=== PATIENT | male | born 1950 | race African-American/Black ===

== ENCOUNTER 2021-09-24 09:20 | Emergency (ER) | payer MEDICARE ==
[~2021-09-24] VITALS: Ht 176.5 cm; Wt 95.5 kg
[2021-09-24] MEDS ORDERED: PRO1 PO (09:31)
[2021-09-24] MEDS ORDERED: LISI10TA26 PO (09:31)
[2021-09-24] MEDS ORDERED: ACYCLOVIR 400 MG TABLET PO ONE (10:30)
[2021-09-24] MEDS ORDERED: NIFEDIPINE XL 30MG TAB PO ONE (10:30)
[2021-09-24] MEDS ORDERED: PREDNISONE 20MG TABLET PO ONE (10:30)
[2021-09-24 10:44] LABS: BASOPHILS % 0.7 % (0.0-2.0); EOSINOPHILS % 1.4 % (0.0-5.0); HEMATOCRIT. 44.6 % (42.0-52.0); HEMOGLOBIN. 14.6 g/dL (14.0-18.0); LYMPHOCYTES % 18.1 % (20.0-50.0); MEAN CORPUSCULAR HEMOGLOBIN 27.1 pg (28.0-32.0); MEAN CORPUSCULAR VOLUME 83.1 fL (80.0-94.0); MEAN PLATELET VOLUME 9.3 fl (7.4-10.4); MONOCYTES % 7.7 % (2.0-8.0); NEUTROPHILS % 72.1 % (40.0-76.0); PLATELET 281 x1000/uL (130-400); RED BLOOD CELL COUNT 5.37 mill/uL (4.7-6.1); RED CELL DISTRIBUTION WIDTH 14.3 % (11.6-14.6)
[2021-09-24 10:49] LABS: CHLORIDE 106 mEq/L (98-107)
[2021-09-24] MEDS ORDERED: NIFE-33 MT (13:08)
[2021-09-24] MEDS ORDERED: ACYC200C31 MT (13:08)
[2021-09-24] MEDS ORDERED: POLY15DR31 EACHEYE (13:08)
[2021-09-24] MEDS ORDERED: P50 MT (13:08)
[2021-09-24] MEDS ORDERED: CLOP-31 MT (13:09)
[2021-09-24] MEDS ORDERED: AMLODIPINE 5MG TABLET PO ONE (13:30)
[2021-09-24 13:32] VITALS: BP 213/117
[2021-09-24] MEDS ORDERED: CLONIDINE 0.1MG TABLET PO ONE (14:30)
== END 2021-09-24 14:33 | disposition left against medical advice (07) ==
LOC: ER 09:20
DX: G51.0 Bell's palsy (principal); I16.0 Hypertensive urgency; R94.31 Abnormal electrocardiogram [ECG] [EKG]; I10 Essential (primary) hypertension; E11.9 Type 2 diabetes mellitus without complications; E78.00 Pure hypercholesterolemia, unspecified
CPT/HCPCS: 36415; 70450; 80053; 82962; 85025; 93005; 99285; J7512

== ENCOUNTER 2022-08-23 13:40 | Inpatient (IN) | payer MEDICARE ==
[~2022-08-23] VITALS: Ht 175.3 cm; Wt 90.3 kg
[~2022-08-23 13:40] MED LIST: ACYC200C31 MT; CLOP-31 MT; LISI10TA26 PO; NIFE-33 MT; P50 MT; POLY15DR31 EACHEYE; PRO1 PO
[2022-08-23] MEDS ORDERED: VISCOUS LIDOCAINE 2% 15 ML UDC PO STA (16:32)
[2022-08-23] MEDS ORDERED: ONDANSETRON HCL 4MG/2ML INJ IV STA (16:32)
[2022-08-23] MEDS ORDERED: DICYCLOMINE 10 MG/5 ML ORAL SYR PO STA (16:32)
[2022-08-23] MEDS ORDERED: MAGNESIUM/ALUMINUM HYDROXIDE/SIMETHICONE 30ML UDC PO STA (16:32)
[2022-08-23 17:28] LABS: HEMATOCRIT. 52.2 % (42.0-52.0); HEMOGLOBIN. 17.1 g/dL (14.0-18.0); MEAN CORPUSCULAR HEMOGLOBIN 27.5 pg (28.0-32.0); MEAN CORPUSCULAR VOLUME 84.1 fL (80.0-94.0); MEAN PLATELET VOLUME 10.1 fl (7.4-10.4); PLATELET 324 x1000/uL (130-400); RED BLOOD CELL COUNT 6.21 mill/uL (4.7-6.1); RED CELL DISTRIBUTION WIDTH 14.1 % (11.6-14.6)
[2022-08-23 17:33] LABS: CHLORIDE 102 mEq/L (98-107); PROTHROMBIN TIME 10.9 sec (9.6-11.0)
[2022-08-23] MEDS ORDERED: HYDRALAZINE 20MG/ML VIAL IV ONE (18:00)
[2022-08-23 18:17] LABS: PLATELET ESTIMATE NORMAL
[2022-08-23] MEDS ORDERED: DICYCLOMINE 10 MG/5 ML ORAL SYR PO NR (20:15)
[2022-08-23] MEDS ORDERED: VISCOUS LIDOCAINE 2% 15 ML UDC PO NR (20:15)
[2022-08-23] MEDS ORDERED: ONDANSETRON HCL 4MG/2ML INJ IV NR (20:15)
[2022-08-23] MEDS ORDERED: MAGNESIUM/ALUMINUM HYDROXIDE/SIMETHICONE 30ML UDC PO NR (20:15)
[2022-08-23] MEDS ORDERED: HYDRALAZINE 20MG/ML VIAL IV NR (20:15)
[2022-08-23] MEDS ORDERED: LISINOPRIL 10MG TABLET PO ONE (21:30)
[2022-08-23] MEDS ORDERED: NIFEDIPINE XL 60MG TAB PO ONE (21:30)
[2022-08-23] MEDS ORDERED: NICARDIPINE 40MG/200ML PREMIX 200 ML IV PRN (21:30)
[2022-08-23 22:14] LABS: CLARITY URINE CLEAR (CLEAR); COLOR URINE YELLOW (YELLOW); KETONES URINE 2+ (NEGATIVE); LEUKOCYTE ESTERASE URINE NEGATIVE (NEGATIVE); NITRITE URINE NEGATIVE (NEGATIVE); OCCULT BLOOD URINE 1+ (NEGATIVE); PH URINE 5.5 (4.5-8.0); PROTEIN URINE 4+ (NEGATIVE); SPECIFIC GRAVITY URINE 1.063 (1.005-1.030); UROBILINOGEN URINE 0.2 E.U./dL (0.2-1.0)
[2022-08-23] MEDS ORDERED: ASPIRIN 325MG TABLET PO ONE (23:00)
[2022-08-23] MEDS ORDERED: IOHEXOL-350 100 ML BOTTLE ONE (23:42)
[2022-08-24] MEDS ORDERED: DILTIAZEM HCL 5MG/ML 5ML VIAL IV ONE (00:45)
[2022-08-24] MEDS ORDERED: DILTIAZEM HCL 5MG/ML 5ML VIAL IV NR (01:45)
[2022-08-24] MEDS ORDERED: NICARDIPINE 40MG/200ML PREMIX 200 ML IV PRN (04:15)
[2022-08-24] MEDS ORDERED: CLONIDINE 0.2MG TABLET PO PRN (09:00)
[2022-08-24] MEDS: LOSARTAN POTASSIUM 50 MG TABLET PO SCH (09:51)
[2022-08-24] MEDS: NIFEDIPINE XL 60MG TAB PO SCH (09:51)
[2022-08-24] MEDS ORDERED: INSULIN LISPRO 100 UNITS/ML SUBCUT SCH (12:45)
[2022-08-24 14:00] VITALS: BP 120/65
[2022-08-24] MEDS ORDERED: ACETAMINOPHEN 325MG TABLET PO PRN (14:30)
[2022-08-24] MEDS ORDERED: INSULIN GLARGINE 100 UNITS/ML SUBCUT NR (14:45)
[2022-08-24] MEDS ORDERED: DEXTROSE 50% WATER 50ML SYRINGE IV PRN (14:45)
[2022-08-24] MEDS ORDERED: INSULIN LISPRO 100 UNITS/ML SUBCUT NR (14:45)
[2022-08-24 15:04] VITALS: BP 122/68
[2022-08-24] MEDS ORDERED: LEVOFLOXACIN 500MG PREMIX 100 ML IV SCH ×2 (16:00→18:30)
[2022-08-24] MEDS ORDERED: INFLUENZA VACCINE 05/PF 0.5 ML SYRINGE IM ONE (16:30)
[2022-08-24] MEDS: BLOOD SUGAR DIAGNOSTIC STRIP TEST SCH ×2 (17:20→21:09)
[2022-08-24 18:00] VITALS: BP 130/53
[2022-08-24] MEDS: ENOXAPARIN 30MG/0.3ML SYR SUBCUT SCH (18:10)
[2022-08-24] MEDS: INSULIN LISPRO 100 UNITS/ML SUBCUT SCH ×2 (18:11→21:00)
[2022-08-24 19:37] LABS: HEMATOCRIT. 47.3 % (42.0-52.0); HEMOGLOBIN. 15.7 g/dL (14.0-18.0); MEAN CORPUSCULAR HEMOGLOBIN 27.5 pg (28.0-32.0); MEAN PLATELET VOLUME 9.7 fl (7.4-10.4); PLATELET 283 x1000/uL (130-400); RED BLOOD CELL COUNT 5.69 mill/uL (4.7-6.1); RED CELL DISTRIBUTION WIDTH 14.5 % (11.6-14.6)
[2022-08-24 19:48] LABS: CHLORIDE 103 mEq/L (98-107)
[2022-08-24 20:00] VITALS: BP 122/73
[2022-08-24 20:46] LABS: PLATELET ESTIMATE NORMAL
[2022-08-24 22:00] VITALS: BP 135/69
[2022-08-25] VITALS (18 sets, daily range): BP systolic 133–168; BP diastolic 67–97
[2022-08-25 01:33] LABS: CREATINE KINASE MB FRACTION 5.9 ng/mL (0.5-3.6)
[2022-08-25] MEDS: ENOXAPARIN 30MG/0.3ML SYR SUBCUT SCH (05:13)
[2022-08-25] MEDS: CLONIDINE 0.1MG TABLET PO PRN (06:29)
[2022-08-25] MEDS: ONDANSETRON HCL 4MG/2ML INJ IV PRN ×5 (06:37→23:05)
[2022-08-25] MEDS: BLOOD SUGAR DIAGNOSTIC STRIP TEST SCH ×4 (07:44→21:55)
[2022-08-25] MEDS: NIFEDIPINE XL 60MG TAB PO SCH (08:06)
[2022-08-25] MEDS: LOSARTAN POTASSIUM 50 MG TABLET PO SCH (08:07)
[2022-08-25] MEDS: INSULIN LISPRO 100 UNITS/ML SUBCUT SCH ×4 (08:10→22:00)
[2022-08-25] MEDS ORDERED: MORPHINE SULFATE 2 MG/ML CPJ (NOT FOR IM USE) IV NR (08:30)
[2022-08-25] MEDS ORDERED: POTASSIUM CHLORIDE INJ 30 MEQ in DEXT 5% WATER 250 ML IV NR (10:00)
[2022-08-25 16:19] LABS: CREATINE KINASE MB FRACTION 4.1 ng/mL (0.5-3.6)
[2022-08-25] MEDS ORDERED: NALOXONE HCL 0.4MG/ML VIAL IV PRN (16:45)
[2022-08-25] MEDS: MORPHINE SULFATE 2 MG/ML CPJ (NOT FOR IM USE) IV PRN ×2 (16:48→23:06)
[2022-08-25] MEDS ORDERED: LEVOFLOXACIN 250MG PREMIX 50 ML IV SCH (18:00)
[2022-08-25] MEDS: FUROSEMIDE 40MG/4ML VIAL IVP SCH (18:57)
[2022-08-25] MEDS ORDERED: VANCOMYCIN 1,750 MG in DEXT 5% WATER 250 ML IV NR (20:30)
[2022-08-25] MEDS: PIPERACILLIN/TAZOBACTAM 3.375 G in DEXTROSE 5% WATER 50 ML IV SCH (21:56)
[2022-08-26] VITALS (16 sets, daily range): BP systolic 114–200; BP diastolic 77–112
[2022-08-26] MEDS: CLONIDINE 0.1MG TABLET PO PRN (02:45)
[2022-08-26] MEDS: PIPERACILLIN/TAZOBACTAM 3.375 G in DEXTROSE 5% WATER 50 ML IV SCH ×3 (05:23→21:45)
[2022-08-26] MEDS: BLOOD SUGAR DIAGNOSTIC STRIP TEST SCH ×4 (07:30→21:45)
[2022-08-26] MEDS: INSULIN LISPRO 100 UNITS/ML SUBCUT SCH ×4 (09:27→21:56)
[2022-08-26] MEDS: ENOXAPARIN 40MG/0.4ML SYR SUBCUT SCH (09:29)
[2022-08-26] MEDS: FUROSEMIDE 40MG/4ML VIAL IVP SCH (09:29)
[2022-08-26] MEDS: LOSARTAN POTASSIUM 50 MG TABLET PO SCH (09:30)
[2022-08-26] MEDS: ASPIRIN 81MG EC TABLET PO SCH (09:35)
[2022-08-26] MEDS: NIFEDIPINE XL 90MG TAB PO SCH ×2 (09:35→16:57)
[2022-08-26] MEDS: CLOPIDOGREL 75MG TABLET PO SCH (09:36)
[2022-08-26] MEDS ORDERED: LEVOFLOXACIN 500MG PREMIX 100 ML IV SCH (11:00)
[2022-08-26 12:46] LABS: HEMOGLOBIN. 16.4 g/dL (14.0-18.0); MEAN CORPUSCULAR HEMOGLOBIN 27.4 pg (28.0-32.0); MEAN CORPUSCULAR VOLUME 83.6 fL (80.0-94.0); MEAN PLATELET VOLUME 9.8 fl (7.4-10.4); PLATELET 291 x1000/uL (130-400); RED BLOOD CELL COUNT 5.99 mill/uL (4.7-6.1)
[2022-08-26 13:00] LABS: CHLORIDE 96 mEq/L (98-107)
[2022-08-26 14:03] LABS: PLATELET ESTIMATE NORMAL
[2022-08-26] MEDS ORDERED: POTASSIUM CHLORIDE 20MEQ TABLET SR PO NR (18:45)
[2022-08-26] MEDS: ONDANSETRON HCL 4MG/2ML INJ IV PRN (18:53)
[2022-08-26] MEDS ORDERED: INSULIN GLARGINE 100 UNITS/ML SUBCUT SCH (22:00)
[2022-08-27] VITALS (14 sets, daily range): BP systolic 127–175; BP diastolic 76–99
[2022-08-27] MEDS: VANCOMYCIN 1G PREMIX 200 ML IV SCH ×2 (00:19→17:40)
[2022-08-27] MEDS: PIPERACILLIN/TAZOBACTAM 3.375 G in DEXTROSE 5% WATER 50 ML IV SCH ×3 (05:24→21:56)
[2022-08-27] MEDS: BLOOD SUGAR DIAGNOSTIC STRIP TEST SCH ×4 (07:26→21:00)
[2022-08-27 07:52] LABS: BASOPHILS % 0.1 % (0.0-2.0); EOSINOPHILS % 0.1 % (0.0-5.0); HEMATOCRIT. 53.8 % (42.0-52.0); HEMOGLOBIN. 18.1 g/dL (14.0-18.0); LYMPHOCYTES % 8.3 % (20.0-50.0); MEAN CORPUSCULAR HEMOGLOBIN 28.1 pg (28.0-32.0); MEAN CORPUSCULAR VOLUME 83.8 fL (80.0-94.0); MEAN PLATELET VOLUME 9.7 fl (7.4-10.4); MONOCYTES % 11.7 % (2.0-8.0); NEUTROPHILS % 79.8 % (40.0-76.0); PLATELET 279 x1000/uL (130-400); RED BLOOD CELL COUNT 6.43 mill/uL (4.7-6.1); RED CELL DISTRIBUTION WIDTH 14.1 % (11.6-14.6)
[2022-08-27] MEDS: INSULIN LISPRO 100 UNITS/ML SUBCUT SCH ×4 (08:00→21:56)
[2022-08-27] MEDS ORDERED: REGADENOSON 0.4 MG/5 ML IV ONE (09:00)
[2022-08-27] MEDS: ONDANSETRON HCL 4MG/2ML INJ IV PRN (09:59)
[2022-08-27] MEDS: ASPIRIN 81MG EC TABLET PO SCH (09:59)
[2022-08-27] MEDS: CLOPIDOGREL 75MG TABLET PO SCH (09:59)
[2022-08-27] MEDS: LOSARTAN POTASSIUM 50 MG TABLET PO SCH (09:59)
[2022-08-27] MEDS: ENOXAPARIN 40MG/0.4ML SYR SUBCUT SCH (09:59)
[2022-08-27] MEDS: NIFEDIPINE XL 90MG TAB PO SCH ×2 (10:02→17:55)
[2022-08-27] MEDS: FUROSEMIDE 40MG/4ML VIAL IVP SCH (10:04)
[2022-08-27] MEDS: LEVOFLOXACIN 500MG PREMIX 100 ML IV SCH (10:05)
[2022-08-27] MEDS ORDERED: VANCOMYCIN 1250MG in DEXTROSE 5% WATER 250ML IV SCH (12:00)
[2022-08-27] MEDS: INSULIN GLARGINE 100 UNITS/ML SUBCUT SCH (21:56)
[2022-08-28] VITALS (8 sets, daily range): BP systolic 127–178; BP diastolic 71–90
[2022-08-28] MEDS: PIPERACILLIN/TAZOBACTAM 3.375 G in DEXTROSE 5% WATER 50 ML IV SCH ×3 (05:34→22:00)
[2022-08-28 07:17] LABS: BASOPHILS % 0.2 % (0.0-2.0); EOSINOPHILS % 0.6 % (0.0-5.0); HEMATOCRIT. 50.8 % (42.0-52.0); HEMOGLOBIN. 16.7 g/dL (14.0-18.0); LYMPHOCYTES % 15.1 % (20.0-50.0); MEAN CORPUSCULAR HEMOGLOBIN 27.7 pg (28.0-32.0); MEAN CORPUSCULAR VOLUME 84.5 fL (80.0-94.0); MEAN PLATELET VOLUME 9.7 fl (7.4-10.4); MONOCYTES % 11.9 % (2.0-8.0); NEUTROPHILS % 72.2 % (40.0-76.0); PLATELET 275 x1000/uL (130-400); RED BLOOD CELL COUNT 6.01 mill/uL (4.7-6.1); RED CELL DISTRIBUTION WIDTH 13.6 % (11.6-14.6)
[2022-08-28] MEDS: INSULIN LISPRO 100 UNITS/ML SUBCUT SCH ×4 (07:43→21:34)
[2022-08-28] MEDS: BLOOD SUGAR DIAGNOSTIC STRIP TEST SCH ×4 (07:43→21:35)
[2022-08-28] MEDS: ASPIRIN 81MG EC TABLET PO SCH (08:24)
[2022-08-28] MEDS: CLOPIDOGREL 75MG TABLET PO SCH (08:25)
[2022-08-28] MEDS: NIFEDIPINE XL 90MG TAB PO SCH ×2 (08:25→17:19)
[2022-08-28] MEDS: LOSARTAN POTASSIUM 50 MG TABLET PO SCH (08:25)
[2022-08-28] MEDS: ENOXAPARIN 40MG/0.4ML SYR SUBCUT SCH (08:28)
[2022-08-28] MEDS: FUROSEMIDE 40MG/4ML VIAL IVP SCH (08:29)
[2022-08-28] MEDS: ONDANSETRON HCL 4MG/2ML INJ IV PRN (09:20)
[2022-08-28] MEDS ORDERED: REGADENOSON 0.4 MG/5 ML IV ONE (09:30)
[2022-08-28] MEDS ORDERED: LORAZEPAM 0.5MG TABLET PO NR (10:45)
[2022-08-28] MEDS ORDERED: LORAZEPAM 2MG/ML CPJ IV NR (10:45)
[2022-08-28] MEDS ORDERED: POTASSIUM CHLORIDE 20MEQ TABLET SR PO NR (10:45)
[2022-08-28] MEDS: LEVOFLOXACIN 500MG PREMIX 100 ML IV SCH (14:31)
[2022-08-28] MEDS: VANCOMYCIN 1G PREMIX 200 ML IV SCH (18:38)
[2022-08-28] MEDS: INSULIN GLARGINE 100 UNITS/ML SUBCUT SCH (21:35)
[2022-08-29] VITALS (13 sets, daily range): BP systolic 118–166; BP diastolic 54–90
[2022-08-29] MEDS: VANCOMYCIN 1G PREMIX 200 ML IV SCH ×2 (00:30→12:57)
[2022-08-29] MEDS: PIPERACILLIN/TAZOBACTAM 3.375 G in DEXTROSE 5% WATER 50 ML IV SCH ×3 (06:00→21:56)
[2022-08-29] MEDS: FUROSEMIDE 40MG/4ML VIAL IVP SCH (08:06)
[2022-08-29] MEDS: LOSARTAN POTASSIUM 50 MG TABLET PO SCH (08:06)
[2022-08-29] MEDS: NIFEDIPINE XL 90MG TAB PO SCH ×2 (08:07→17:08)
[2022-08-29] MEDS: ENOXAPARIN 40MG/0.4ML SYR SUBCUT SCH (08:07)
[2022-08-29] MEDS: ASPIRIN 81MG EC TABLET PO SCH (08:07)
[2022-08-29] MEDS: CLOPIDOGREL 75MG TABLET PO SCH (08:07)
[2022-08-29] MEDS: BLOOD SUGAR DIAGNOSTIC STRIP TEST SCH ×4 (08:13→17:16)
[2022-08-29] MEDS: INSULIN LISPRO 100 UNITS/ML SUBCUT SCH ×4 (08:20→20:56)
[2022-08-29 13:05] LABS: BASOPHILS % 0.1 % (0.0-2.0); EOSINOPHILS % 0.8 % (0.0-5.0); HEMATOCRIT. 47.7 % (42.0-52.0); HEMOGLOBIN. 15.6 g/dL (14.0-18.0); LYMPHOCYTES % 11.4 % (20.0-50.0); MEAN CORPUSCULAR HEMOGLOBIN 27.6 pg (28.0-32.0); MEAN CORPUSCULAR VOLUME 84.2 fL (80.0-94.0); MEAN PLATELET VOLUME 9.3 fl (7.4-10.4); MONOCYTES % 10.4 % (2.0-8.0); NEUTROPHILS % 77.3 % (40.0-76.0); PLATELET 256 x1000/uL (130-400); RED BLOOD CELL COUNT 5.67 mill/uL (4.7-6.1); RED CELL DISTRIBUTION WIDTH 13.7 % (11.6-14.6)
[2022-08-29 13:14] LABS: CHLORIDE 97 mEq/L (98-107)
[2022-08-29] MEDS: INSULIN GLARGINE 100 UNITS/ML SUBCUT SCH (21:59)
[2022-08-30] VITALS (10 sets, daily range): BP systolic 113–157; BP diastolic 34–93
[2022-08-30] MEDS: VANCOMYCIN 1G PREMIX 200 ML IV SCH
[2022-08-30] MEDS: PIPERACILLIN/TAZOBACTAM 3.375 G in DEXTROSE 5% WATER 50 ML IV SCH ×2 (06:18→13:05)
[2022-08-30] MEDS: BLOOD SUGAR DIAGNOSTIC STRIP TEST SCH ×3 (07:30→17:14)
[2022-08-30] MEDS: INSULIN LISPRO 100 UNITS/ML SUBCUT SCH ×3 (08:00→17:14)
[2022-08-30 08:11] LABS: BASOPHILS % 0.2 % (0.0-2.0); EOSINOPHILS % 1.6 % (0.0-5.0); HEMATOCRIT. 46.9 % (42.0-52.0); HEMOGLOBIN. 15.4 g/dL (14.0-18.0); LYMPHOCYTES % 13.6 % (20.0-50.0); MEAN CORPUSCULAR HEMOGLOBIN 27.6 pg (28.0-32.0); MEAN CORPUSCULAR VOLUME 84.2 fL (80.0-94.0); MEAN PLATELET VOLUME 9.9 fl (7.4-10.4); MONOCYTES % 9.8 % (2.0-8.0); NEUTROPHILS % 74.8 % (40.0-76.0); PLATELET 276 x1000/uL (130-400); RED BLOOD CELL COUNT 5.57 mill/uL (4.7-6.1); RED CELL DISTRIBUTION WIDTH 13.8 % (11.6-14.6)
[2022-08-30 08:18] LABS: CHLORIDE 99 mEq/L (98-107)
[2022-08-30] MEDS: CLOPIDOGREL 75MG TABLET PO SCH (08:55)
[2022-08-30] MEDS: NIFEDIPINE XL 90MG TAB PO SCH ×2 (08:55→17:23)
[2022-08-30] MEDS: ENOXAPARIN 40MG/0.4ML SYR SUBCUT SCH (08:55)
[2022-08-30] MEDS: LOSARTAN POTASSIUM 50 MG TABLET PO SCH (08:56)
[2022-08-30] MEDS: FUROSEMIDE 40MG/4ML VIAL IVP SCH (08:56)
[2022-08-30] MEDS: ASPIRIN 81MG EC TABLET PO SCH (08:56)
[2022-08-30] MEDS ORDERED: POTASSIUM CHLORIDE 20MEQ TABLET SR PO NR (09:15)
[2022-08-30] MEDS ORDERED: FURO-151 MT (12:14)
[2022-08-30] MEDS ORDERED: LOSA50TA3 PO (12:14)
[2022-08-30] MEDS ORDERED: NIFE90TA60 MT (12:14)
[2022-08-30] MEDS ORDERED: LANTUSUD SUBCUT (12:14)
[2022-08-30] MEDS ORDERED: HYDR100T26 MT (12:15)
== END 2022-08-30 18:55 | disposition home or self-care (01) | DRG 871 ==
LOC: ER 13:40 → MICUSO 21:18 → 5EST 08-24 18:24
PROVIDERS: ADMIT Internal Medicine; ATTEND Internal Medicine
DX: A41.9 Sepsis, unspecified organism (principal); I21.4 Non-ST elevation (NSTEMI) myocardial infarction; J18.9 Pneumonia, unspecified organism; J81.1 Chronic pulmonary edema; E87.1 Hypo-osmolality and hyponatremia; N17.9 Acute kidney failure, unspecified; I31.39 Other pericardial effusion (noninflammatory); E11.43 Type 2 diabetes mellitus with diabetic autonomic (poly)neuropathy; Z20.822 Contact with and (suspected) exposure to COVID-19; I16.0 Hypertensive urgency; E11.65 Type 2 diabetes mellitus with hyperglycemia; I10 Essential (primary) hypertension; E78.5 Hyperlipidemia, unspecified; E87.6 Hypokalemia; K31.84 Gastroparesis; E78.00 Pure hypercholesterolemia, unspecified; G51.0 Bell's palsy; E27.8 Other specified disorders of adrenal gland; I49.3 Ventricular premature depolarization; K83.8 Other specified diseases of biliary tract; Z79.02 Long term (current) use of antithrombotics/antiplatelets; Z91.199 Patient's noncompliance with other medical treatment and regimen due to unspecified reason; Z79.82 Long term (current) use of aspirin; Z79.899 Other long term (current) drug therapy; Z87.891 Personal history of nicotine dependence
CPT/HCPCS: 36415; 71045; 71275; 74174; 74181; 76705; 78452; 80048; 80053; 80076; 80202; 81003; 82550; 82553; 82962; 83036; 83880; 84145; 84484; 85025; 87426; 87804; 90686; 93005; 93017; 93306; 97162; 97166; 99291; A9500; C9803; J0360; J1650; J1815; J1940; J1956; J2060; J2270; J2405; J2543; J2785; J3370; J3480; J3490; J7060; Q9967